=== PATIENT | female | born 1990 | race Caucasian/White ===

== ENCOUNTER → 2020-11-03 | Emergency (ER) | payer MEDICAID, SELFPAY ==
[~2020-11-03] VITALS: Ht 152.4 cm; Wt 86.2 kg
[~2020-11-03] MED LIST: ACETAMINOPHEN EXTRA STRENGTH 500 MG TAB PO ONE
[2020-11-03 17:16] VITALS: BP 111/72
--- NOTE | 2020-11-03 17:19 | NUR ---
PT TO AWAIT IN TENT
--- NOTE | 2020-11-03 18:31 | NUR ---
NOVEL SWAB COLLECTED AND SENT TO LAB
--- NOTE | 2020-11-03 19:13 | NUR ---
REPORT GIVEN TO MITCHELL SERNA FOR CONTINUITY OF CARE
[2020-11-03 20:15] VITALS: BP 111/72
--- NOTE | 2020-11-03 20:17 | NUR ---
Patient discharged with v/s stable. Written and verbal after care instructions given and explained. Patient verbalized understanding. Ambulatory with steady gait. All questions addressed prior to discharge. Advised to follow up with PMD.
== END | disposition home or self-care (01) ==
LOC: MED 17:05
DX: R51.9 Headache, unspecified (principal); Z20.822 Contact with and (suspected) exposure to COVID-19; R50.9 Fever, unspecified; R11.0 Nausea
CPT/HCPCS: 81002; 81025; 99283; U0003